=== PATIENT | male | born 1980 | race African-American/Black ===

== ENCOUNTER 2020-12-29 15:15 | Emergency (ER) | payer BC ==
[~2020-12-29] VITALS: Ht 182.9 cm; Wt 101.0 kg
--- NOTE | 2020-12-29 15:53 | PHYS DOC ---
Past History Past Medical History: Bipolar (KAMALJIT CAMPOS APRN) Past Surgical History: No Surgical History (KAMALJIT CAMPOS APRN) Alcohol Use: None (KAMALJIT CAMPOS APRN) General Adult EDM: Chief Complaint: NEURO SYMPTOMS/DEFICITS HPI: HPI: Patient is a 40-year-old male who presents with numbness and tingling in his hands, feet, lips, dizziness. Patient states he had a headache prior to symptoms starting. Patient dates he had a headache prior to numbness and tingling starting. Patient states all the symptoms started about 2 and half hours ago. Patient denies chest pain, shortness of breath, weakness. Denies taking anything for headache prior to arrival. Patient is a history of anxiety, bipolar disorder. (KAMALJIT CAMPOS APRN) Review of Systems: Review of Systems: Constitutional: Denies fever or chills Eyes: Denies change in visual acuity HENT: Denies nasal congestion or sore throat Respiratory: Denies cough or shortness of breath Cardiovascular: Denies chest pain or edema GI: Denies abdominal pain, nausea, vomiting, bloody stools or diarrhea : Denies dysuria Musculoskeletal: Denies back pain or joint pain Integument: Denies rash Neurologic: Reports headache, denies focal weakness, reports sensory changes on the right side Endocrine: Denies polyuria or polydipsia Lymphatic: Denies swollen glands Psychiatric: Denies depression or anxiety (KAMALJIT CAMPOS APRN) Allergies: Allergies: Allergies Coded Allergies Type Severity Reaction Last Updated Verified No Known Drug Allergies 12/29/20 No (KAMALJIT CAMPOS APRN) Physical Exam: PE: Constitutional: Well developed, well nourished, no acute distress, non-toxic appearance. [] HENT: Normocephalic, atraumatic, bilateral external ears normal, oropharynx moist, no oral exudates, nose normal. [] Eyes: PERRLA, EOMI, conjunctiva normal, no discharge. [] Neck: Normal range of motion, no tenderness, supple, no stridor. [] Cardiovascular:Heart rate regular rhythm, no murmur [] Lungs & Thorax: Bilateral breath sounds clear to auscultation [] Abdomen: Bowel sounds normal, soft, no tenderness, no masses, no pulsatile masses. [] Skin: Warm, dry, no erythema, no rash. [] Back: No tenderness, no CVA tenderness. [] Extremities: No tenderness, no cyanosis, no clubbing, ROM intact, no edema. [] Neurologic: Alert and oriented X 3, normal motor function, normal sensory function, no focal deficits noted. [] Psychologic: Affect normal, judgement normal, mood normal. [] (KAMALJIT CAMPOS APRN) Current Patient Data: Vital Signs: Vital Signs Date Time Temp Pulse Resp B/P (MAP) Pulse Ox O2 Delivery O2 Flow Rate FiO2 12/29/20 15:27 98.2 96 16 161/98 (119) 99 Room Air (KAMALJIT CAMPOS APRN) EKG: EKG: Sinus rhythm. Heart rate 80 bpm. [] (KAMALJIT CAMPOS APRN) Radiology/Procedures: Radiology/Procedures: []Exam: CT head INDICATION: Dizzy, numbness in feet headache TECHNIQUE: Sequential axial images through the head were obtained without the administration of IV contrast. Exposure: One or more of the following in the visualized dose reduction techniques were utilized for this examination: 1. Automated exposure control 2. Adjustment of the MA and/or KV according to patient size 3. Use of iterative of reconstructive technique Comparisons: None FINDINGS: No focal parenchymal lesion or hemorrhage is identified. There is no midline shift or sulcal effacement. No acute vascular territory infarction is identified. Mendoza-white distinction is preserved. The ventricular system is within normal limits without compression hydrocephalus. The basal cisterns are well maintained. The visualized portions of the paranasal sinuses and mastoid air cells are well- pneumatized. No acute fractures. IMPRESSION: No acute intracranial abnormality. Electronically signed by: Jason Atkins MD (12/29/2020 4:05 PM) [facility] (KAMALJIT CAMPOS APRN) Heart Score: C/O Chest Pain: No Risk Factors: Risk Factors: DM, Current or recent (<one month) smoker, HTN, HLP, family history of CAD, obesity. Risk Scores: Score 0 - 3: 2.5% MACE over next 6 weeks - Discharge Home Score 4 - 6: 20.3% MACE over next 6 weeks - Admit for Clinical Observation Score 7 - 10: 72.7% MACE over next 6 weeks - Early Invasive Strategies (KAMALJIT CAMPOS APRN) Course & Med Decision Making: Course & Med Decision Making Pertinent Labs and Imaging studies reviewed. (See chart for details) [] Patient presents to the emergency room with numbness and tingling in his hands, feet, lips, dizziness. Prior to symptoms starting patient reports he had a headache. Patient is denying headache at this time. On physical exam, patient reports different sensation on the right. No weakness noted. CT of head is negative for any acute abnormalities. All other labs unremarkable. Patient most likely had a panic attack which caused the neuro symptoms.Patient is alert and oriented. Patient is hemodynamically stable. Instructed patient to follow-up with PCP for further management if symptoms persist. Patient given strict return instructions. Patient is able to ambulate on his own out of the emergency room. Patient is appreciative and okay with discharge plan. (KAMALJIT CAMPOS APRN) Fran Disclaimer: Fran Disclaimer: This electronic medical record was generated, in whole or in part, using a voice recognition dictation system. (KAMALJIT CAMPOS APRN) Departure Departure: Impression: Primary Impression: Anxiety Disposition: 01 HOME / SELF CARE / HOMELESS Condition: STABLE Referrals: RAINE SAEED DO (PCP) Patient Instructions: Anxiety and Panic Attacks, [id number] Additional Instructions: EMERGENCY DEPARTMENT GENERAL DISCHARGE INSTRUCTIONS Thank you for coming to [facility] (ED) today and trusting us with you care. We trust that you had a positivie experience in our Emergency Department. If you wish to speak to the department management, you may call the director at [phone]. YOUR FOLLOW UP INSTRUCTIONS ARE FOLLOWS: 1. Do you have a private Doctor? If you do not have a private doctor, please ask for a resource list of physicians or clinics that may be able to assist you with follow up care. 2. The Emergency Physician has interpreted your x-rays. The X-Ray specialist will also review them. If there is a change in the findings, you will be notified in 48 hours when at all possible. 3. A lab test or culture has been done, your results will be reviewed and you will be notified if you need a change in treatment. ADDITIONAL INSTRUCTIONS AND INFORMATION: 1. Your care today has been supervised by a physician who is specially trained in emergency care. Many problems require more than one evaluation for a complete diagnosis and treatment. We recommend that you schedule your follow up appointment as recommended to ensure complete treatment of you illness or injury. If you are unable to obtain follow up care and continue to have a problem, or if your condition worsens, we recommend that you return to the ED. 2. We are not able to safely determine your condition over the phone nor are we able to give sound medical advice over the phone. For these safety reasons, if you call for medical advice we will ask you to come to the ED for further evaluation. 3. If you have any questions regarding these discharge instructions please call the ED at [phone]. SAFETY INFORMATION: In the interest of safety, wellness, and injury prevention; we encourage you to wear your sealbelt, if you smoke; quite smoking, and we encourage family to use a protective helmet for bicycling and other sporting events that present an increased risk for head injury. IF YOUR SYMPTOMS WORSEN OR NEW SYMPTOMS DEVELOP, OR YOU HAVE CONCERNS ABOUT YOUR CONDITION; OR IF YOUR CONDITION WORSENS WHILE YOU ARE WAITING FOR YOUR FOLLOW UP APPOINTMENT; EITHER CONTACT YOUR PRIMARY CARE DOCTOR, THE PHYSICIAN WHOSE NAME AND NUMBER YOU WERE GIVEN, OR RETURN TO THE ED IMMEDIATELY. Attending Signature Attending Signature I have reviewed the PA/AED TRAINER's note and plan of care. I was available for consultation as needed during the patient's visit in the emergency department. I agree with the clinical impression, plan, and disposition. (DENIS MORALES DO) KAMALJIT CAMPOS APRN December 29, 2020 15:53 DENIS MORALES DO January 02, 2021 04:21
[2020-12-29] MEDS: IV NORMAL SALINE 1,000ML 1,000 ML IV ONE (15:57)
[2020-12-29 16:01] LABS: BASO # 0.1 x10^3/uL (0.0-0.2); BASO % 1 % (0-3); EOS # 0.1 x10^3/uL (0.0-0.7); EOS % 1 % (0-3); HEMATOCRIT 41.9 % (39.0-53.0); HEMOGLOBIN 14.3 g/dL (13.0-17.5); LYMPH # 1.3 x10^3/uL (1.0-4.8); LYMPH % 14 % (24-48); MEAN CORPUSCULAR HEMOGLOBIN 31 pg (25-35); MEAN CORPUSCULAR HGB CONC 34 g/dL (31-37); MEAN CORPUSCULAR VOLUME 92 fL (79-100); MONO # 0.6 x10^3/uL (0.0-1.1); MONO % 7 % (0-9); NEUT # 7.1 x10^3uL (1.8-7.7); NEUT % 78 % (31-73); PLATELET COUNT 259 x10^3/uL (140-400); RED BLOOD COUNT 4.57 x10^6/uL (4.30-5.70); RED CELL DISTRIBUTION WIDTH 12.9 % (11.5-14.5); WHITE BLOOD COUNT 9.1 x10^3/uL (4.0-11.0)
--- NOTE | 2020-12-29 16:08 | RAD ---
Exam: CT head INDICATION: Dizzy, numbness in feet headache TECHNIQUE: Sequential axial images through the head were obtained without the administration of IV co ntrast. Exposure: One or more of the following in the visualized dose reduction techniques were utilized for this examination: 1. Automated exposure control 2. Adjustment of the MA and/or KV according to patient size 3. Use of iterative of reconstructive technique Comparisons: None FINDINGS: No focal parenchymal lesion or hemorrhage is identified. There is no midline shift or sulcal effaceme nt. No acute vascular territory infarction is identified. Mendoza-white distinction is preserved. The ventricular system is within normal limits without compression hydrocephalus. The basal cisterns are well maintained. The visualized portions of the paranasal sinuses and mastoid air cells are well-pneumatized. No acute fractures. IMPRESSION: No acute intracranial abnormality. Electronically signed by: Jason Atkins MD (12/29/2020 4:05 PM) [facility]
[2020-12-29 16:09] LABS: CALCIUM 9.2 mg/dL (8.5-10.1); CREATININE 1.3 mg/dL (0.7-1.3); GFR 73.3; POTASSIUM 3.7 mmol/L (3.5-5.1)
[2020-12-29 16:55] VITALS: BP 156/104
--- NOTE | 2020-12-29 17:26 | EKG ---
[address] [address] Test Date: 2020-12-29 Test Time: 16:08:30 Pat Name: XANDER GUTIERREZ Department: Room: Gender: M Crm Consultant: DIDI : 1980 Requested By: KAMALJIT CAMPOS Order Number: [id number] Reading MD: Measurements Intervals [place] Rate: 80 P: 0 NH: 176 QRS: -10 QRSD: 78 T: 17 QT: 374 QTc: 435 Interpretive Statements SINUS RHYTHM LEFTWARD AXIS OTHERWISE NORMAL ECG RI6.02 No previous ECG available for comparison
== END 2020-12-29 17:01 | disposition home or self-care (01) ==
LOC: ER 15:15
DX: R41.9 Unspecified symptoms and signs involving cognitive functions and awareness (principal); F31.9 Bipolar disorder, unspecified; R42 Dizziness and giddiness
CPT/HCPCS: 36415; 70450; 80048; 85025; 93005; 96360; 99285; J7030